=== PATIENT | female | born 1995 | race Caucasian/White ===

== ENCOUNTER 2016-12-19 11:55 | Emergency (ER) | payer OTHER, BC ==
[2016-12-19 12:07] VITALS: BP 130/74
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
[2016-12-19] MEDS ORDERED: TRAMADOL HCL 50 MG TABLET PO ONE (13:54)
== END 2016-12-19 13:59 | disposition home or self-care (01) ==
LOC: ER 11:55
DX: M54.2 Cervicalgia (principal); M25.50 Pain in unspecified joint; M25.569 Pain in unspecified knee; M25.519 Pain in unspecified shoulder; V89.2XXA Person injured in unspecified motor-vehicle accident, traffic, initial encounter
CPT/HCPCS: 70450; 71020; 72125; 99284

== ENCOUNTER → 2017-09-19 | Outpatient (CLI) | payer BC ==
[2017-09-19 15:44] LABS: CHLAM PCR NOT DETECTED (NOT DETECT); GON PCR NOT DETECTED (NOT DETECT)
== END ==
LOC: OD 11:43
PROVIDERS: ATTEND Nurse Practitioner Acute Care
DX: N89.8 Other specified noninflammatory disorders of vagina (principal); R10.9 Unspecified abdominal pain
CPT/HCPCS: 87086; 87491; 87591

== ENCOUNTER 2018-08-09 19:19 | Emergency (ER) | payer BC ==
[2018-08-09] MEDS ORDERED: IBUPROFEN 600 MG TABLET PO ONE (19:57)
[2018-08-09] MEDS ORDERED: ACETAMINOPHEN 325 MG TABLET PO ONE (19:57)
--- NOTE | 2018-08-09 19:57 | ER Document Report ---
HPI - HPI Time Seen by Provider: 08/09/18 19:45 Pain Level: 0 Context: Patient is a 22-year-old female who presents to the emergency department with a chief complaint of right second finger pressure. She states that her finger has always made a clicking sound for the past 2 years, but has never had any pain. Last night around 2:00 in the morning she felt pressure in her middle knuckle. She states that popping her finger makes the pressure feel better. She states that every time she keeps her finger straight she is afraid that she is not going to be able to move her finger and it will get stuck. The patient denies any pain but has tears every time I speak with her. Denies any redness or swelling to the finger. Denies any fever, or unable to move her finger. - CONSTITUTIONAL Constitutional: DENIES: Fever - NEURO Neurology: DENIES: Headache - RESPIRATORY Respiratory: DENIES: Trouble Breathing, Coughing - REPRODUCTIVE LMP: 07/28 Reproductive: DENIES: : - MUSCULOSKELETAL Musculoskeletal: DENIES: Extremity pain, Back Pain, Swelling - DERM Skin Color: Normal Skin Problems: None Past Medical History - General Information source: Patient - Social History Smoking Status: Never Smoker Family History: Reviewed & Not Pertinent - Past Medical History Cardiac Medical History: Reports: Hx Hypertension Vertical Provider Document - CONSTITUTIONAL Agree With Documented VS: Yes Exam Limitations: No Limitations General Appearance: No Apparent Distress - INFECTION CONTROL TRAVEL OUTSIDE OF THE [place] IN LAST 30 DAYS: No - HEENT HEENT: Atraumatic, Normocephalic - RESPIRATORY Respiratory: No Respiratory Distress - CARDIOVASCULAR Cardiovascular: Regular Rhythm Pulses: Normal: Radial - MUSCULOSKELETAL/EXTREMETIES Musculoskeletal/Extremeties: FROM, Non-Tender, No Edema. negative: Eccymosis - NEURO Level of Consciousness: Awake, Alert, Appropriate Motor/Sensory: No Motor Deficit, No Sensory Deficit, No Pronator Drift - DERM Integumentary: Warm, Dry Course - Re-evaluation Re-evalutation: 08/09/18 21:00 Patient has good flexion and extension of all her digits. I do not suspect she has tenosynovitis. Her fingers are symmetrical and normal. Patient's x-ray is normal. I am referring her to Dr. Tejada because he is the hand specialist. I suspect the patient has a psychological component to her finger pressure complaint, because she states that she is nervous about her finger and why she has pressure in her joint. I do not suspect she has any life-threatening etiology at this time. She will be discharged. Verbal discharge instructions were given to the patient. They verbalized understanding. They are stable for discharge. - Vital Signs Vital signs: Temp Pulse Resp BP Pulse Ox 97.9 F 103 H 16 143/91 H 99 08/09/18 19:27 08/09/18 19:27 08/09/18 19:27 08/09/18 19:27 08/09/18 19:27 Discharge - Discharge Clinical Impression: Finger pain, right Condition: Stable Disposition: HOME, SELF-CARE Additional Instructions: You were seen today in the emergency department for right finger pressure. Your x-ray is normal. Please follow-up with orthopedics in regards to your finger. If you have a red swollen finger or are unable to move your finger, please return to the emergency department. You can take ibuprofen 600 mg and acetaminophen 1000 mg every 6 hours as needed for any pain. Referrals: MINNIE TEJADA DO [ACTIVE STAFF] - Follow up in 3-5 days
--- NOTE | 2018-08-09 20:59 | RADIOLOGY REPORT (SQ) ---
EXAM DESCRIPTION: XR FINGERS COMPLETED DATE/TME: 08/09/2018 19:54 CLINICAL HISTORY: 22 years, Female, finger pain EXAM DESCRIPTION: CLINICAL HISTORY: finger pain COMPARISON: None FINDINGS: 3 view(s) submitted. No fracture or dislocation is identified. Bone marrow attenuation is unremarkable. No radiopaque foreign body is identified. IMPRESSION: No acute fracture or dislocation.
[2018-08-09 21:35] VITALS: BP 138/86
== END 2018-08-09 21:35 | disposition home or self-care (01) ==
LOC: ER 19:19
DX: M79.644 Pain in right finger(s) (principal); R29.898 Other symptoms and signs involving the musculoskeletal system
CPT/HCPCS: 99283